=== PATIENT | female | born 1980 | race Caucasian/White ===

== ENCOUNTER 2019-11-29 07:40 | Inpatient (IN) | payer OTHER ==
[2019-11-29] MEDS ORDERED: BUTORPHANOL TARTRATE 1 MG/ML VIAL IVPB ONE (08:45)
[2019-11-29] MEDS ORDERED: PROMETHAZINE HCL 25 MG/1 ML VIAL IVPUSH ONE (08:45)
--- NOTE | 2019-11-29 08:53 | HP ---
Past Medical History - Primary Care Physician PCP:: Shaina Cage - Admission Chief Complaint: contractions and bloody show History Source: Patient Limitations to Obtaining History: No Limitations - Past Medical History ...: 1 ...Para: 0 ... Weeks Gestation by Dates: 39.2 ...EDC by Dates: 12/04/19 Additional OB History: AMA, cystic fibrosis carrier, GDMA1, GBS positive - Past Surgical History Past Surgical History: Yes: None Hx Myomectomy: No Hx Transabdominal Cerclage: No - Smoking History Smoking history: Never smoked - Alcohol/Substance Use Hx Alcohol Use: No History of Substance Use: reports: None Home Medications - Allergies Allergies/Adverse Reactions: Allergies Allergy/AdvReac Type Severity Reaction Status Date / Time No Known Allergies Allergy Verified 11/29/19 08:41 - Home Medications Home Medications: Ambulatory Orders Pnv No.95/Ferrous Fum/Folic AC [ Vitamin Tablet] 1 each PO DAILY 11/27/19 Review of Systems - Review of Systems Constitutional: reports: No Symptoms Cardiovascular: reports: No Symptoms Respiratory: reports: No Symptoms Gastrointestinal: reports: Abdominal Pain Genitourinary: reports: Vaginal Bleeding Breasts: reports: No Symptoms Reported Musculoskeletal: reports: No Symptoms Neurological: reports: No Symptoms Psychiatric: reports: No Symptoms Physical Exam - Maternity Constitutional: Yes: No Distress Cardiovascular: Yes: Regular Rate and Rhythm Lungs: Clear to auscultation - Abdominal Exam/OB Fundal Height: 40 Number of Fetuses: Single Presentation: Vertex Contractions: Yes Regularity: Irregular Intensity: Mild/Mod Monitor Mode: External Heart Rate (range): 140 Category: I Decelerations: None - Vaginal Exam/OB Vaginal Bleeding: Bloody Show Speculum Exam: No Dilatation (cm): 1 Effacement (%): 50 Amniotic Membrane Status: Intact Presentation: Vertex/Position Station: -3 - Physical Exam Musculoskeletal: Yes: WNL Extremities: Yes: WNL Edema: No Psychiatric: Yes: Alert, Oriented Assessment/Plan 39 y/o with GDMA1 at 39w2d in latent labor. AMA, cystic fibrosis carrier, GBS positive. Admit to L&D Augmentation of labor GBS prophylaxis Reassess
[2019-11-29] MEDS ORDERED: AMPICILLIN - 2 GM in SODIUM CHLORIDE 100 ML IVPB ONE (08:55)
[2019-11-29] MEDS ORDERED: AMPICILLIN - 1 GM in SODIUM CHLORIDE 100 ML IVPB SCH (09:00)
[2019-11-29] MEDS ORDERED: OXYTOCIN 30 UNITS in 0.9% NS 30 UNIT/500 ML INFUS.BAG IVPB SCH (09:00)
[2019-11-29 09:06] VITALS: BMI 29.2
[2019-11-29 11:20] LABS: BASO % 0.4 % (0-2.0); EOS % 0.4 % (0-4.5); HEMATOCRIT 35.2 % (32.4-45.2); HEMOGLOBIN 11.9 GM/dL (10.7-15.3); LYMPH % 24.1 % (8-40); MCH 30.3 pg (25.7-33.7); MCHC 33.8 g/dl (32.0-36.0); MEAN CELL VOLUME 89.6 fl (80-96); MEAN PLT VOLUME 10.3 fl (7.5-11.1); MONO % 6.1 % (3.8-10.2); PLATELET COUNT 210 K/MM3 (134-434); RBC 3.93 M/mm3 (3.60-5.2); WHITE BLOOD COUNT 9.6 K/mm3 (4.0-10.0)
[2019-11-29 11:28] LABS: INR 0.91 (0.83-1.09); PROTHROMBIN TIME (PATIENT) 10.7 SEC (9.7-13.0)
[2019-11-29 11:31] LABS: ACTIVATED PTT 28.5 SECONDS (25.2-36.5)
[2019-11-29] MEDS ORDERED: DINOPROSTONE 10 MG VAGINAL SUPPOSITORY VG ONE (11:51)
[2019-11-29 12:20] LABS: BLOOD UREA NITROGEN 9.2 mg/dL (7-18); CREATININE 0.8 mg/dL (0.55-1.3); POTASSIUM 4.3 mmol/L (3.5-5.1)
[2019-11-29] MEDS: ELECTROLYTE-148 SOLN 1,000 ML IV SCH (19:31)
[2019-11-30] MEDS ORDERED: DINOPROSTONE 10 MG VAGINAL SUPPOSITORY VG ONE (00:35)
--- NOTE | 2019-11-30 01:32 | PN ---
Progress Note (short form) - Note Progress Note: Patient comfortably in bed. VSS, afebrile EFM - Baseline 140/min, moderate variability, acceleration, no deceleration Tocos - irregular Pelvis - 1cm/long/-3 Plan - Full term gestation on cervidil ripening Cervidil replaced Anticipate vaginal delivery.
[2019-11-30] MEDS ORDERED: BUTORPHANOL TARTRATE 1 MG/ML VIAL ONE ×2 (05:27)
[2019-11-30] MEDS ORDERED: PROMETHAZINE HCL 25 MG/1 ML VIAL ONE (05:28)
[2019-11-30] MEDS ORDERED: AMPICILLIN SODIUM 1 GM VIAL ONE (10:26)
[2019-11-30] MEDS: ELECTROLYTE-148 SOLN 1,000 ML IV SCH (11:00)
[2019-11-30] MEDS ORDERED: FENTANYL/BUPIVACAINE/NS/PF - PCEA - 50 ML DISP.SYRIN EP ONE (12:52)
[2019-11-30] MEDS ORDERED: PCA PUMP NR ONE ×2 (12:52→16:06)
[2019-11-30] MEDS ORDERED: AMPICILLIN SODIUM 2 GM VIAL ONE (12:53)
[2019-11-30] MEDS ORDERED: AMPICILLIN - 2 GM in SODIUM CHLORIDE 100 ML IVPB ONE (12:58)
[2019-11-30] MEDS ORDERED: BUPIVACAINE HCL/PF 0.25% (2.5MG/ML) 10 ML VIAL ONE (13:13)
--- NOTE | 2019-11-30 13:41 | PN ---
Progress Note (short form) - Note Progress Note: Attending note: patient uncomfortable; requesting epidural cervix= 4cm/ 80%/-2 [id number]/ moderate variability/ acc/ no decelerations/ contractions q 3-4 I/P: for epidural/ Pitocin/ cervidil removed
[2019-11-30] MEDS ORDERED: OXYTOCIN 30 UNITS in 0.9% NS 30 UNIT/500 ML INFUS.BAG IVPB SCH ×2 (13:45→14:30)
[2019-11-30] MEDS ORDERED: FENTANYL/BUPIVACAINE/NS/PF - PCEA - 50 ML DISP.SYRIN EP SCH (14:45)
[2019-11-30] MEDS ORDERED: NALOXONE HCL 0.4 MG/ML VIAL IVPUSH PRN (14:45)
[2019-11-30] MEDS ORDERED: OXYTOCIN 30 UNITS in 0.9% NS 30 UNIT/500 ML INFUS.BAG IVPB ONE (14:47)
[2019-11-30] MEDS ORDERED: CITRIC ACID/SODIUM CITRATE 30 ML UNIT-DOSE CUP PO ONE (16:01)
--- NOTE | 2019-11-30 16:07 | PN ---
Progress Note (short form) - Note Progress Note: Attending note: patient developing variable decelerations; unable to tolerate low dose of Oxytocin cervix unchanged .will move to deliver by c section discussed with patient and ; R/B/A reviewed and patient accepted c section
[2019-11-30] MEDS ORDERED: LIDO 2%/EPI 1:200000 PRESRVFRE (20 ML SDVIAL) ONE (16:16)
[2019-11-30] MEDS ORDERED: OXYTOCIN 10 UNITS/ML VIAL ONE (16:44)
[2019-11-30] MEDS ORDERED: ceFAZolin SODIUM 1 GM VIAL ONE (16:45)
[2019-11-30] MEDS ORDERED: KETOROLAC TROMETHAMINE 30 MG/1 ML VIAL ONE (16:45)
[2019-11-30] MEDS ORDERED: PHENYLEPHRINE HCL 10 MG/1 ML SINGLE DOSE VIAL ONE (16:51)
[2019-11-30] MEDS ORDERED: AMPICILLIN - 1 GM in SODIUM CHLORIDE 100 ML IVPB SCH (17:00)
[2019-11-30] MEDS ORDERED: METHYLERGONOVINE MALEATE 0.2 MG/1 ML AMP IM PRN (17:30)
--- NOTE | 2019-11-30 17:43 | OP ---
Operative Note - Note: Operative Date: 11/30/19 Pre-Operative Diagnosis: FTP/NRFHT Operation: C SECTION Findings: OP position Post-Operative Diagnosis: Same as Pre-op Surgeon: Rosey Mayer Gate Keeper: Diaz Fraser Anesthesia: Epidural Estimated Blood Loss (mls): 750 Operative Report Dictated: Yes
[2019-11-30] MEDS: OXYTOCIN 20 UNITS in 0.9% NS 20 UNIT/1,000 ML INFUS.BAG IV SCH (19:14)
[2019-11-30] MEDS ORDERED: OXYTOCIN 20 UNITS in 0.9% NS 20 UNIT/1,000 ML INFUS.BAG IV ONE (19:40)
[2019-11-30] MEDS: ACETAMINOPHEN 1000 MG/100 ML VIAL (NON FORMULARY) IVPB PRN (23:35)
[2019-12-01] MEDS: CEFAZOLIN 1 GM/D5W 1 GM/50 ML BAG IVPB SCH ×3 (02:01→17:44)
[2019-12-01] MEDS: OXYTOCIN 20 UNITS in 0.9% NS 20 UNIT/1,000 ML INFUS.BAG IV SCH (02:01)
[2019-12-01] MEDS: ACETAMINOPHEN 1000 MG/100 ML VIAL (NON FORMULARY) IVPB PRN (06:25)
[2019-12-01 09:20] LABS: BASO % 0.3 % (0-2.0); EOS % 0.3 % (0-4.5); HEMATOCRIT 30.2 % (32.4-45.2); HEMOGLOBIN 9.9 GM/dL (10.7-15.3); LYMPH % 15.1 % (8-40); MCH 29.5 pg (25.7-33.7); MCHC 32.8 g/dl (32.0-36.0); MEAN CELL VOLUME 90.1 fl (80-96); MEAN PLT VOLUME 9.6 fl (7.5-11.1); MONO % 4.8 % (3.8-10.2); NEUT % 79.5 % (42.8-82.8); PLATELET COUNT 160 K/MM3 (134-434); RBC 3.35 M/mm3 (3.60-5.2); RDW 16.7 % (11.6-15.6); WHITE BLOOD COUNT 11.5 K/mm3 (4.0-10.0)
[2019-12-01] MEDS: IBUPROFEN 600 MG TABLET (FP) PO PRN ×3 (11:30→23:58)
[2019-12-01] MEDS: SIMETHICONE 80 MG TAB.CHEW (FP) PO PRN ×3 (11:31→23:58)
--- NOTE | 2019-12-01 12:34 | PN ---
Post Progress Note Post Day: 1 Type of Delivery: Primary C/S Vital Signs: Vital Signs Temperature 98 F 12/01/19 10:00 Pulse Rate 98 H 12/01/19 10:00 Respiratory Rate 20 12/01/19 10:00 Blood Pressure 108/70 12/01/19 10:00 O2 Sat by Pulse Oximetry (%) 99 12/01/19 10:00 Breast Exam: Yes: Soft Uterus: Yes: Fundus Firm, Fundus below umbilicus, Non-tender Incision: Yes: Dressing dry and intact Abdomen/GI: Yes: Abdomen soft, Tolerating PO Lochia: Yes: Rubra Lochia, amount: Small Extremities: Yes: Calves non-tender Activity: Ambulating - Labs Labs: CBC WBC 11.5 K/mm3 (4.0-10.0) H 12/01/19 08:55 RBC 3.35 M/mm3 (3.60-5.2) L 12/01/19 08:55 Hgb 9.9 GM/dL (10.7-15.3) L 12/01/19 08:55 Hct 30.2 % (32.4-45.2) L 12/01/19 08:55 MCV 90.1 fl (80-96) 12/01/19 08:55 MCH 29.5 pg (25.7-33.7) 12/01/19 08:55 MCHC 32.8 g/dl (32.0-36.0) 12/01/19 08:55 RDW 16.7 % (11.6-15.6) H 12/01/19 08:55 Plt Count 160 K/MM3 (134-434) D 12/01/19 08:55 MPV 9.6 fl (7.5-11.1) 12/01/19 08:55 Absolute Neuts (auto) 9.1 K/mm3 (1.5-8.0) H 12/01/19 08:55 Neutrophils % 79.5 % (42.8-82.8) 12/01/19 08:55 Lymphocytes % 15.1 % (8-40) D 12/01/19 08:55 Monocytes % 4.8 % (3.8-10.2) 12/01/19 08:55 Eosinophils % 0.3 % (0-4.5) 12/01/19 08:55 Basophils % 0.3 % (0-2.0) 12/01/19 08:55 Nucleated RBC % 0 % (0-0) 12/01/19 08:55 Assessment/Plan S/P delivery, pod # 1, with slow return of bowel function(reports no flatus yet) Continue management
--- NOTE | 2019-12-01 14:08 | PN ---
Progress Note (short form) - Note Progress Note: 39F s/p C/S under duramorph spinal. No new c/o. Vital Signs Temp 98 F 12/01/19 10:00 Pulse 98 H 12/01/19 10:00 Resp 20 12/01/19 10:00 BP 108/70 12/01/19 10:00 Pulse Ox 99 12/01/19 10:00 Intake & Output 11/30/19 12/01/19 12/01/19 23:59 11:59 23:59 Intake Total 1000 1500 Output Total 500 1000 Balance 500 500 Intake: IV 1000 1250 NORMAL SALINE+20 UNITS 1250 OXYTOCIN - 20 unit In 1, 000 ml @ 125 mls/hr IV ASDIR SONU Rx#:[id number] Plasma-Lyte 148 - 1,000 1000 ml @ 125 mls/hr IV ASDIR SONU Rx#:[id number] IVPB 250 Output: Urine 500 1000 Alejandra 500 1000 Other: Voiding Method Indwelling Catheter Toilet Bowel Movement No No Weight 9 lb 1 oz Length 21 in CBC, BMP 12/01/19 08:55 11/29/19 10:05 - No anesthesia complications
[2019-12-01] MEDS ORDERED: oxyCODONE HCL 5 MG TABLET PO PRN (17:30)
[2019-12-01] MEDS ORDERED: BISACODYL 10 MG SUPP.RECT RC PRN (17:30)
[2019-12-02] MEDS: IBUPROFEN 600 MG TABLET (FP) PO PRN ×4 (06:11→21:29)
[2019-12-02] MEDS: SIMETHICONE 80 MG TAB.CHEW (FP) PO PRN ×3 (06:11→21:28)
--- NOTE | 2019-12-02 12:26 | DS ---
Physical Exam-MIME ARTIST Vital Signs: Vital Signs Temperature 99.0 F 12/01/19 22:00 Pulse Rate 69 12/01/19 22:00 Respiratory Rate 18 12/01/19 22:00 Blood Pressure 114/71 12/01/19 22:00 O2 Sat by Pulse Oximetry (%) 99 12/01/19 10:00 Labs: CBC, BMP 12/01/19 08:55 11/29/19 10:05 Delivery - Delivery Type of Anesthesia: Epidural Episiotomy/Laceration: None EBL (cc): 750 Delivery, Single - Stages of Labor Date 1st Stage Initiatied: 11/30/19 Time 1st Stage Initiated: 05:00 Date of Delivery: 11/30/19 Time of Delivery: 16:52 Time Placenta Delivered: 16:53 - Condition of Software Tools Engineer/Circulation Sales Representative Present: Yes Name: Gaby Denson Infant Gender: Male Weight: 4.111 kg Position: OP Total Hours ROM (Hrs/Mins): 4h13m - 1 Minute Total Score: 9 5 Minutes Total Score: 9 - [place] Feeding Plan Initial Plan: Elected not to breastfeed exclusively throughout hospitalization Remarks - Remarks Remarks: pt. without complaints. tolerating diet, ambulating well. + flatus vss - af abd: soft, nt, nd, dressing c/d/i +bs ve: min lochia ext: no calf tenderness. trace edema b/l a/p pod 2 s/p to shower now and remove dressing in shower. dulcolax x 1. pt. doing well and interested in going home, but prefers to go in am ( not clear for d/c yet) will send Rxs and give instructions for d/c in am tmrw f/u in clinic next week for wound check Discharge Summary Problems reviewed: Yes Reason For Visit: LABOR ADMIT Procedures: Principal: Hospital Course: pt. admitted in labor. underwent uncomplicated for non reassuring heart rate. post op course uneventful. Condition: Good - Instructions Diet, Activity, Other Instructions: regular diet. activity as tolerated, but no strenuous activity, no heavy lifting and no intercourse. wound care: wash daily with soap and warm water, rinse clean, pat dry and leave open to air Disposition: HOME - Home Medications Comprehensive Discharge Medication List: Ambulatory Orders Pnv No.95/Ferrous Fum/Folic AC [ Vitamin Tablet] 1 each PO DAILY 0
[2019-12-03] MEDS: SIMETHICONE 80 MG TAB.CHEW (FP) PO PRN (06:43)
[2019-12-03] MEDS: IBUPROFEN 600 MG TABLET (FP) PO PRN (06:43)
[2019-12-03 08:33] LABS: BASO % 0.3 % (0-2.0); EOS % 1.6 % (0-4.5); HEMATOCRIT 31.3 % (32.4-45.2); HEMOGLOBIN 10.3 GM/dL (10.7-15.3); LYMPH % 26.8 % (8-40); MCH 29.8 pg (25.7-33.7); MEAN CELL VOLUME 90.1 fl (80-96); MEAN PLT VOLUME 9.1 fl (7.5-11.1); MONO % 5.1 % (3.8-10.2); NEUT % 66.2 % (42.8-82.8); PLATELET COUNT 180 K/MM3 (134-434); RBC 3.47 M/mm3 (3.60-5.2); RDW 17.1 % (11.6-15.6); WHITE BLOOD COUNT 8.1 K/mm3 (4.0-10.0)
--- NOTE | 2019-12-03 10:31 | PN ---
Progress Note (short form) - Note Progress Note: pt without complaints. vss - af abd: soft, nt, nd inc : c/d/i ve: def ext: no calf tenderness a/p pod 3 s/p doing well d/c to home today rtc next week for wound check
[2019-12-03 10:55] VITALS: BP 108/68; PULSE 79; TEMP 98
--- NOTE | 2019-12-05 14:28 | PATH ---
Surgical Pathology Report Patient Name: SACHA LAMAS Med. Rec. #: [id number] /Age/Gender: 1980 (Age: 39) / F Account: [id number] Location: [facility] OBS/TECHNICAL COMMUNICATOR Taken: 11/30/2019 Received: 12/02/2019 Reported: 12/05/2019 Physicians: Rosey Mayer M.D. Specimen(s) Received PLACENTA Clinical History at 39.3 weeks Final Diagnosis PLACENTA, SECTION: 597 G THIRD TRIMESTER PLACENTA, TRIVASCULAR UMBILICAL CORD WITH FOCAL ACUTE PHLEBITIS, AND UNREMARKABLE PLACENTAL MEMBRANES. Electronically Signed Savannah Aranda M.D. Gross Description The specimen is received fresh labeled placenta and is a 597 gram, 22.0 x 18.0 x 2.6 cm. placenta with attached membranes and umbilical cord. The attached membranes are prescott, translucent with focal opacities and insert marginally. The umbilical cord measures 43 cm. in length and averages 1 cm. in diameter. The cord inserts eccentrically, 5.5 cm. to the nearest margin. No true knots or strictures are identified. Cut surface of the umbilical cord reveals 3 vessels. The surface is alcala-blue with minimal fibrin deposition and appropriate caliber vessels. The maternal surface is red-brown with focal defects. Sectioning reveals red-brown, spongy parenchyma. No lesions are identified. Director Of Leadership Development sections are submitted in three cassettes as follows: 1- membrane rolls and umbilical cord; 2-3- full thickness sections of placenta. 12/04/2019 saudi12/04/2019
--- NOTE | 2019-12-12 19:44 | OP ---
DATE OF OPERATION: 11/30/2019 DATE OF DICTATION: 12/12/2019 This patient is a 39-year-old female, 1, para 0, at 39 weeks' gestation, with labor, with nonreassuring heart tracing and failure to progress. PREOPERATIVE DIAGNOSIS: Failure to progress, nonreassuring heart tracing. POSTOPERATIVE DIAGNOSIS: Failure to progress, nonreassuring heart tracing. PROCEDURE: Primary section through Pfannenstiel incision. SURGEON: Rosey Mayer MD. WAFER FABRICATOR: YE Welch. ESTIMATED BLOOD LOSS: 750 mL. DESCRIPTION OF PROCEDURE: The patient was taken into the operating room, was prepped and draped in the usual sterile fashion after a good level of epidural was documented. The Alejandra catheter had been introduced into the bladder, it was draining clear urine throughout the procedure. With a fresh knife, a Pfannenstiel incision was made 2 fingerbreadths above symphysis pubis, and this incision was taken down through the subcutaneous tissue and into the fascia with the Bovie. The fascia was nicked in the midline with the Bovie, and this incision was extended laterally on both sides with same. The muscle was from the fascia in the midline peritoneum was identified and entered under direct visualization. A low angle retractor was then put in place to protect the bladder. The bladder flap was then created, and then the low angle retractor was then repositioned. With Metzenbaum, the lower uterine segment was entered, and this incision was extended laterally on both sides. The amniotic sac had previously been ruptured of clear fluid. The baby was delivered from the vertex position with fundal pressure atraumatically . The baby was suctioned, the umbilical cord was clamped and cut. The was handed to the stave cutting supervisor who assigned the Apgars. The placenta was then delivered manually . The uterus was then brought into the abdominal incision . The uterine cavity was then cleared with a lap pad . The uterine incision was then closed, the 1st layer running locking suture of 0 Vicryl, and the 2nd layer inverting the 1st layer and incorporating the bladder flap with 0 Vicryl. Hemostasis was checked and was satisfactory. Both ovaries and fallopian tubes were within normal limits. The uterus was then repositioned into the pelvic cavity. The lateral gutters were suctioned of blood and fluid. Instrument count, sponge count, and needle count was correct. Then the peritoneum was then closed with chromic, the muscles were reapproximated with chromic .The fascia was closed with 0 Vicryl. Subcutaneous fat was approximated with 2-0 plain, and the skin was closed with 4-0 Vicryl. Steri-Strip was then applied, and dressing was applied. Patient returned to recovery room in satisfactory condition. MD CHRISTIANO ROSE/[id number]
== END 2019-12-03 11:25 | disposition home or self-care (01) | DRG 540 ==
LOC: JDEL 07:40 → JLDR 08:20 → J3W 11-30 20:00
PROVIDERS: ADMIT Obstetrics & Gynecology; ATTEND Obstetrics & Gynecology
PROC: 10D00Z1 Extraction of Products of Conception, Low, Open Approach (ICD-10-PCS; principal; 2019-11-30)
PROC: 3E0P7VZ Introduction of Hormone into Female Reproductive, Via Natural or Artificial Opening (ICD-10-PCS; 2019-11-30)
DX: O76 Abnormality in fetal heart rate and rhythm complicating labor and delivery (principal); O62.0 Primary inadequate contractions; O32.4XX0 Maternal care for high head at term, not applicable or unspecified; O99.824 Streptococcus B carrier state complicating childbirth; O24.420 Gestational diabetes mellitus in childbirth, diet controlled; Z37.0 Single live birth; Z3A.39 39 weeks gestation of pregnancy; Z14.1 Cystic fibrosis carrier
CPT/HCPCS: 36415; 59025; 80048; 85025; 85610; 85730; 86780; 86850; 86900; 86901; 88307-TC; J0131